=== PATIENT | male | born 2000 | race Caucasian/White ===

== ENCOUNTER 2024-11-06 07:19 | Emergency (ER) | payer SELFPAY ==
[~2024-11-06] VITALS: Ht 167.6 cm; Wt 66.0 kg
[2024-11-06 07:32] VITALS: O2SAT 98
[2024-11-06] MEDS ORDERED: ERYT1OIN6 LEFTEYE (08:25)
[2024-11-06 08:33] VITALS: BP 120/75; PULSE 69; RESP 16; TEMP 36.9; O2SAT 98
== END 2024-11-06 08:33 | disposition home or self-care (01) ==
LOC: ER 07:19
DX: H10.9 Unspecified conjunctivitis (principal)
CPT/HCPCS: 99283